=== PATIENT | male | born 1945 | race Caucasian/White ===

== ENCOUNTER 2017-11-06 05:23 | Inpatient (IN) ==
[2017-11-06] MEDS ORDERED: Insulin Regular (For Infusion) 100 UNIT in Sodium Chlor 0.9% Inj 99 ML IV.CONT PRN ×2 (05:43→11:15)
[2017-11-06] MEDS ORDERED: Chlorhexidine 4% Topical 120 APPLIC/120 ML Bottle TOPICAL SCH (05:45)
[2017-11-06] MEDS ORDERED: NITROGLYCERIN IRRIGATION SCH ×6 (05:45→06:30)
[2017-11-06] MEDS ORDERED: PAPAVERINE IRRIGATION SCH ×6 (05:45→06:30)
[2017-11-06] MEDS ORDERED: SODIUM CHLOR 0.9% IRRIGATION SCH ×6 (05:45→06:30)
[2017-11-06] MEDS ORDERED: [UNRECOGNIZED DRUG - OTHER] IRRIGATION SCH ×6 (05:45→06:30)
[2017-11-06] MEDS ORDERED: Sodium Chloride 0.9% Irr Bot 500 ML, ceFAZolin Inj 500 MG IRRIGATION SCH ×2 (05:45)
[2017-11-06] MEDS ORDERED: Sodium Chlor 0.9% Inj 500 ML IV.SIG SCH (06:00)
[2017-11-06] MEDS ORDERED: Chlorhexidine Gluconate 2% 1 Pack (2 Cloths) TOPICAL SCH (06:00)
[2017-11-06] MEDS ORDERED: Metoprolol Tartrate 25 MG Tablet PO SCH (06:00)
[2017-11-06] MEDS ORDERED: ceFAZolin Inj 2,000 MG in Sodium Chlor 0.9% Inj 80 ML IV.SIG SCH (06:00)
[2017-11-06] MEDS ORDERED: MethylPREDNISolone Sod Succinate Inj 125 MG/2 ML Vial ONE (06:21)
[2017-11-06] MEDS ORDERED: Heparin - SQ 10,000 UNITS/ML Vial SQ ONE ×2 (06:21→11:36)
[2017-11-06] MEDS ORDERED: ceFAZolin 2 GM Premix Inj 2 GM/50 ML PIGGYBACK IV.SIG ONE (06:22)
[2017-11-06] MEDS ORDERED: Sodium Chlor 0.9% Inj 57.5 ML, Papaverine Inj 60 MG, Nitroglycerin Inj 100 MCG, Verapam... IRRIGATION SCH ×3 (06:30)
[2017-11-06] MEDS ORDERED: Sodium Chlor 0.9% Inj 77.5 ML, Papaverine Inj 60 MG, Nitroglycerin Inj 100 MCG, dilTIAZ... IRRIGATION SCH ×3 (06:30)
[2017-11-06] MEDS: Metoprolol Tartrate 25 MG Tablet PO SCH (07:06)
[2017-11-06] MEDS ORDERED: Cardioplegic Irr Soln 2,000 ML IRRIGATION ONE (07:13)
[2017-11-06] MEDS ORDERED: Heparin 10,000 UNITS/10 ML Vial (for IV use) ONE (07:14)
[2017-11-06] MEDS ORDERED: Albumin Human 25% Inj 50 ML IV.SIG ONE (07:15)
[2017-11-06] MEDS ORDERED: Tranexamic Acid Inj 1,000 MG/10 ML Ampul ONE ×2 (09:46→09:47)
[2017-11-06] MEDS ORDERED: Magnesium Sulfate Inj 2 GM in Sodium Chlor 0.9% Inj 96 ML IV.SIG PRN ×4 (11:15)
[2017-11-06] MEDS ORDERED: Post-op Orders (for Pharmacy) OTHER STA (11:15)
[2017-11-06] MEDS ORDERED: Calcium Chloride Inj 1 GM/10 ML Syringe IV.PUSH PRN (11:15)
[2017-11-06] MEDS ORDERED: Clevidipine Inj 25 MG/50 ML VIAL IV.CONT PRN (11:15)
[2017-11-06] MEDS ORDERED: Potassium Chlor 20 mEq Premix 20 MEQ/100 ML PIGGYBACK IV.SIG PRN ×3 (11:15)
[2017-11-06] MEDS ORDERED: hydrALAZINE HCl Inj 20 MG/ML Vial IV.PUSH PRN (11:15)
[2017-11-06] MEDS ORDERED: Dexmedetomidine Inj 200 MCG in Sodium Chlor 0.9% Inj 48 ML IV.CONT PRN (11:15)
[2017-11-06] MEDS ORDERED: Dextrose 50% in Water 50 ML Vial IV.PUSH PRN (11:15)
[2017-11-06] MEDS ORDERED: Calcium Chloride Inj 1 GM in Sodium Chlor 0.9% Inj 100 ML IV.SIG PRN (11:15)
[2017-11-06] MEDS ORDERED: fentaNYL Citrate Inj 100 MCG/2 ML Ampul IV.PUSH PRN (11:15)
[2017-11-06] MEDS ORDERED: Metoprolol Inj 5 MG/5 ML Vial IV.PUSH PRN (11:15)
[2017-11-06] MEDS ORDERED: RESP: Racemic Epinephrine 2.25% 0.5 ML Neb NEB PRN (11:15)
--- NOTE | 2017-11-06 11:31 | P.OP ---
- Preoperative Diagnosis (1) CAD in [place] artery (2) CAD (coronary atherosclerotic disease) (3) Unstable angina pectoris - Postoperative Diagnosis (1) CAD (coronary atherosclerotic disease) (2) CAD in [place] artery (3) Unstable angina pectoris Date of procedure: 11/06/17 Procedure: CABG x 3 IBANEZ to LAd - fair SVG to OM - good SVG to distal PDA - good EVH Anesthesia: ADALID Surgeon: Norma Norman MD Metal Numerical Control Programmer: Roshan Iverson Pathology: none sent Operation and Findings: The risks, benefits, complications, treatment options, and expected outcomes were discussed with the patient. The possibilities of reaction to medication, pulmonary aspiration, perforation of viscus, bleeding, recurrent infection, the need for additional procedures, failure to diagnose a condition, and creating a complication requiring transfusion or operation were discussed with the patient. The patient concurred with the proposed plan, giving informed consent. The site of surgery properly noted/marked. The patient was taken to Operating Room, identified as Daniel Pereyra and the procedure verified as CABG, EVH, CRISTIAN. A Time Out was held and the above information confirmed. Standard monitoring lines and Clayton catheter were placed. General anesthesia was induced. The patient was prepped and draped in a sterile fashion. A median sternotomy was performed and electrocautery was used to obtain hemostasis. The left internal mammary artery was procured as a pedicle from the 7th rib to the 1st rib in the usual manner. Simultaneously left greater saphenous vein was procured from the left leg using a minimally invasive endoscopic technique. The vein was prepared for anastomosis and the leg wound was irrigated and closed in 2 layers. The pericardium was opened and a pericardial sling was created using interrupted 0 silk sutures. The patient was heparinized for cardiopulmonary bypass and the distal mammary pedicle was instrumented for anastomosis. The heart was instrumented for cardiopulmonary bypass in the usual manner. Antegrade blood cardioplegia was employed. The patient was placed on cardiopulmonary bypass. An aortic cross-clamp was applied and the heart was arrested using cold blood cardioplegia. Antegrade cardioplegia was administered after he each anastomosis. After adequate arrest, the distal right coronary circulation was investigated and the distal PDA was opened with a [place] blade and found to be a 1.5 millimeter good target. Saphenous vein was approximated to the PDA artery using a running 7 0 Prolene suture. The graft was measured for length and orientation and the proximal anastomosis was constructed to the ascending aorta using a running 5 0 Prolene suture after creating an aortotomy with a 5 millimeter punch. The 1st circumflex marginal artery was then opened with a [place] blade and found to be a 1.5 millimeter good target. Saphenous vein was approximated to the OM1 artery using a running 7 0 Prolene suture. The graft was measured for length and orientation and was suspended from the pericardium. The distal LAD was opened with a [place] blade and found to be a 1.5 millimeter fair target with diffuse disease. The left internal mammary artery was approximated to the LAD using a running 7 0 Prolene suture. The pedicle was attached to the epicardium using interrupted 5 0 silk suture. The patient was systemically rewarmed and received a hotshot dose of warm blood cardioplegia. The aorta was vented and the proximal anastomosis to the OM1 graft was accomplished using a running 5 0 Prolene suture after creating an aortotomy was a 5 millimeter punch. The cross-clamp was removed and all proximal and distal anastomoses were examined for hemostasis. The patient was weaned from cardiopulmonary bypass. Protamine was given. There was no adverse reaction. Decannulation was carried out without incident. Wound was checked for hemostasis which was obtained using electrocautery. A 36 [place] mediastinal and 32 [place] left pleural chest tubes were placed and secured to the skin with 0 silk suture. The sternum was closed with stainless steel wire. The fascia was closed with 1. PDS. The subcutaneous tissue was closed using a running 2-0 Vicryl suture. The skin was closed with 4-0 Monocryl. Sterile dressings were placed. At the end of the operation, all sponge, instruments, and needle counts were correct. The patient was transferred to the CICU in stable condition. Findings: diffuse CAD in LAD XC: 50 min CPB: 57 min Drains: mediastinal x 1 pleural x 1 Complications: none Disposition: to CVICU in stable condition
[2017-11-06] MEDS ORDERED: Nitroglycerin Drip Premix 50 MG/250 ML BOTTLE IV.SIG ONE (11:36)
[2017-11-06] MEDS ORDERED: Dextrose 5% in Water Inj 100 ML IV.SIG ONE (11:36)
[2017-11-06] MEDS ORDERED: Sodium Bicarbonate 8.4% Inj 50 MEQ/50 ML Syringe IV.CONT ONE (11:36)
[2017-11-06] MEDS ORDERED: Sodium Chlor 0.9% Inj 250 ML IV.SIG ONE (11:36)
[2017-11-06] MEDS ORDERED: Dexmedetomidine Inj 200 MCG/2 ML Vial IV.CONT ONE (11:36)
[2017-11-06] MEDS ORDERED: Calcium Chloride Inj 1 GM/10 ML Syringe IV.CONT ONE (11:36)
[2017-11-06] MEDS ORDERED: Sodium Chlor 0.9% Inj 100 ML IV.SIG ONE (11:36)
[2017-11-06] MEDS ORDERED: Sod Chloride 0.9% Inj 1,000 ML IV.SIG ONE (11:36)
[2017-11-06] MEDS ORDERED: Glycopyrrolate 0.2 MG/ML Vial IV.PUSH ONE (11:36)
[2017-11-06] MEDS ORDERED: Protamine Sulfate Inj 250 MG/25 ML Vial IV.CONT ONE (11:36)
[2017-11-06] MEDS ORDERED: fentaNYL Citrate Inj 250 MCG/5 ML Ampul ONE ×2 (12:04)
[2017-11-06] MEDS: Albumin Human 5% Inj 250 ML IV.SIG PRN ×2 (12:14→13:52)
--- NOTE | 2017-11-06 12:46 | XR ---
EXAM DATE: 11/06/2017 12:31 PM EDT AGE/SEX: 72 years / Male INDICATIONS: Post CABG. CLINICAL DATA: This is the patient's subsequent encounter. Patient reports that signs and symptoms h ave been present for 1 day and indicates a pain score of Nonresponsive. MEDICAL/SURGICAL HISTORY: Hypertension. . Cardiac cath. COMPARISON: [facility] [place], CHEST 1V SINGLE AP, 10/30/2017. . FINDINGS: A single AP view of the chest demonstrates interval median sternotomy. An endotracheal tube is seen w ith the tip 5 cm from the valdez. Left subclavian central line with the tip at the brachiocephalic ve in level. A nasogastric tube with the tip just past the GE junction. 2 subxiphoid left-sided chest tu bes. No pneumothoraces. Low lung volumes. Minimal basilar atelectasis. No effusions or pneumothorax. The heart is mildly enlarged. Median sternotomy wires. CONCLUSION: Interval median sternotomy with life support lines as detailed above. No pneumothorax or effusion. Electronically signed by: Wes Sheehan MD 11/06/2017 12:45 PM EDT
[2017-11-06] MEDS ORDERED: Nitroglycerin Drip Premix 50 MG/250 ML BOTTLE IV.CONT PRN (15:00)
[2017-11-06] MEDS: Ketorolac Inj 30 MG/ML (IVP) Vial IV.PUSH PRN (15:26)
[2017-11-06] MEDS: Amiodarone 200 MG Tablet PO SCH ×2 (18:24→22:54)
[2017-11-07 04:25] LABS: Hematocrit 34.3 % (39.0-51.0); Lymph # (Auto) 1.5 th/mm3 (1.0-4.8); Lymph % (Auto) 9.5 % (9.0-44.0); Mean Corpuscular HGB Conc 35.1 % (32.0-36.0); Mean Corpuscular Hemoglobin 33.2 pg (27.0-34.0); Mean Corpuscular Volume 94.8 fL (80.0-100.0); Mean Platelet Volume 7.9 fL (7.0-11.0); Mono # (Auto) 1.4 th/mm3 (0.0-0.9); Mono % (Auto) 9.1 % (0.0-8.0); Neut # (Auto) 12.5 th/mm3 (1.8-7.7); Neut % (Auto) 81.4 % (16.0-70.0); Platelet Count 204 th/mm3 (150-450); Red Blood Count 3.62 mil/mm3 (4.50-5.90); Red Cell Distribution Width 12.4 % (11.6-17.2); White Blood Count 15.4 th/mm3 (4.0-11.0)
[2017-11-07 04:51] LABS: Calcium 8.1 mg/dL (8.5-10.1); Magnesium 2.7 mg/dL (1.5-2.5); Potassium 4.1 meq/L (3.5-5.1)
[2017-11-07] MEDS: Amiodarone 200 MG Tablet PO SCH ×3 (05:34→21:03)
[2017-11-07] MEDS: Ketorolac Inj 30 MG/ML (IVP) Vial IV.PUSH PRN (06:12)
--- NOTE | 2017-11-07 06:21 | XR ---
EXAM DATE: 11/07/2017 5:54 AM EDT AGE/SEX: 72 years / Male INDICATIONS: Post CABG. CLINICAL DATA: This is the patient's subsequent encounter. Patient reports that signs and symptoms h ave been present for 2 weeks and indicates a pain score of Nonresponsive. MEDICAL/SURGICAL HISTORY: . Hypertension. . Abdominal aortic aneurysm repair. Cardiac cath. COMPARISON: [facility], CHEST 1V SINGLE AP, 11/06/2017. . FINDINGS: Single AP view of the chest. Median sternotomy wires. Mediastinal drain, left subclavian central veno us catheter, and left-sided chest tube remain in place. Endotracheal tube, nasogastric tube are no lo nger seen. Lungs are clear. Cardiomediastinal silhouette unchanged. No evidence of pleural effusion o r pneumothorax. CONCLUSION: Endotracheal tube and nasogastric tube no longer seen. Lungs are clear. Electronically signed by: Randy Bee MD 11/07/2017 6:20 AM EDT
--- NOTE | 2017-11-07 10:14 | P.PNCA ---
- Note Subjective/Hospital Course: Doing well Maintain CT Transfer CPCU [facility] Objective: Vital Signs - 24 hr 11/06/17 11:55 11/06/17 12:00 11/06/17 14:00 Temperature 97.3 F L 98.6 F Pulse Rate 76 Respiratory Rate 12 12 Blood Pressure 93/56 L Pulse Oximetry 96 98 11/06/17 14:05 11/06/17 14:17 11/06/17 14:21 Temperature Pulse Rate 67 Respiratory Rate 15 Blood Pressure Pulse Oximetry 98 98 11/06/17 14:45 11/06/17 15:00 11/06/17 17:00 Temperature 97.5 F L Pulse Rate 68 Respiratory Rate 16 Blood Pressure 99/60 L Pulse Oximetry 97 97 97 11/06/17 19:17 11/06/17 22:07 11/06/17 22:09 Temperature 97.6 F Pulse Rate 97 H 100 H Respiratory Rate 15 20 Blood Pressure 121/71 Pulse Oximetry 95 98 11/06/17 23:52 11/07/17 03:20 11/07/17 03:34 Temperature 98.7 F 98.7 F Pulse Rate 107 H 102 H 94 H Respiratory Rate 16 16 16 Blood Pressure 109/68 119/57 L Pulse Oximetry 95 95 11/07/17 07:00 11/07/17 08:03 Temperature 98.6 F Pulse Rate 94 H 95 H Respiratory Rate 16 16 Blood Pressure 106/60 Pulse Oximetry 98 95 Labs: Laboratory Results - last 12 hr 11/06/17 11/07/17 11/07/17 23:37 01:52 03:14 WBC RBC Hgb Hct MCV MCH MCHC RDW Plt Count MPV Neut % (Auto) Lymph % (Auto) Dickson % (Auto) Eos % (Auto) Baso % (Auto) Neut # (Auto) Lymph # (Auto) Dickson # (Auto) Eos # (Auto) Baso # (Auto) WBC Differential Differential Comment Sodium Potassium Chloride Carbon Dioxide Anion Gap BUN Creatinine Estimated GFR POC Glucose 141 H 110 102 Random Glucose Calcium Magnesium 11/07/17 11/07/17 04:06 04:06 WBC 15.4 H RBC 3.62 L Hgb 12.0 L Hct 34.3 L MCV 94.8 MCH 33.2 MCHC 35.1 RDW 12.4 Plt Count 204 D MPV 7.9 Neut % (Auto) 81.4 H Lymph % (Auto) 9.5 Dickson % (Auto) 9.1 H Eos % (Auto) 0.0 Baso % (Auto) 0.0 Neut # (Auto) 12.5 H Lymph # (Auto) 1.5 Dickson # (Auto) 1.4 H Eos # (Auto) 0.0 Baso # (Auto) 0.0 WBC Differential . Differential Comment Auto diff final Sodium 141 Potassium 4.1 Chloride 107 Carbon Dioxide 25.0 Anion Gap 9 BUN 15 Creatinine 1.00 Estimated GFR 73 L POC Glucose Random Glucose 107 H Calcium 8.1 L Magnesium 2.7 H Result Diagrams: 11/07/17 04:06 11/07/17 04:06
[2017-11-07] MEDS ORDERED: Bisacodyl 10 MG Supp RECTAL PRN (10:16)
[2017-11-07] MEDS ORDERED: Dextrose 50% in Water 50 ML Vial IV.PUSH PRN ×2 (10:16→10:20)
[2017-11-07] MEDS ORDERED: Sod Phosphate/Sod Biphosphate (Adult) Enema 133 ML Bottle RECTAL PRN (10:16)
[2017-11-07] MEDS: amLODIPine 5 MG Tablet PO SCH (10:47)
[2017-11-07] MEDS: Metoprolol Tartrate 25 MG Tablet PO SCH ×3 (10:47→20:55)
[2017-11-07] MEDS: Insulin NovoLOG Aspart Correctional Sugar Inj SQ SCH ×3 (13:01→20:57)
--- NOTE | 2017-11-07 15:25 | ECG ---
Date Performed: 11/07/2017 Time Performed: 05:47:04 PTAGE: 72 years EKG: Sinus rhythm Left axis deviation Since previous tracing, no significant change noted Abnormal ECG PREVIOUS TRACING : 10/30/2017 11.25 DOCTOR: Morgan Owen Interpretating Date/Time 11/07/2017 15:24:02
[2017-11-07] MEDS: Docusate Sodium 100 MG Capsule PO SCH (20:53)
[2017-11-08] MEDS: Amiodarone 200 MG Tablet PO SCH ×3 (05:42→21:02)
[2017-11-08] MEDS: Insulin NovoLOG Aspart Correctional Sugar Inj SQ SCH ×4 (09:02→20:53)
[2017-11-08] MEDS: Docusate Sodium 100 MG Capsule PO SCH ×2 (09:07→21:02)
[2017-11-08] MEDS: Multivitamin/Minerals Therapeutic Tablet PO SCH (09:08)
[2017-11-08] MEDS: amLODIPine 5 MG Tablet PO SCH (09:08)
[2017-11-08] MEDS: Metoprolol Tartrate 25 MG Tablet PO SCH ×2 (09:09→21:02)
[2017-11-08] MEDS: Polyethylene Glycol 3350 17 GM Packet PO SCH (09:10)
--- NOTE | 2017-11-08 09:45 | P.PNCA ---
- Note Subjective/Hospital Course: 11/[address] Transfer CPCU [facility] 11/08 Doing well Ambulating well CT dumped with ambulation Will re-evaluate for removal in am Discharge planning Objective: Vital Signs - 24 hr 11/07/17 11:00 11/07/17 11:45 11/07/17 12:00 Temperature 98.6 F 97.4 F L Pulse Rate 110 H 101 H 104 H Respiratory Rate 16 17 Blood Pressure 122/62 127/67 Pulse Oximetry 97 96 11/07/17 13:00 11/07/17 14:00 11/07/17 15:00 Temperature 98.4 F Pulse Rate 100 H 102 H 100 H Respiratory Rate 17 Blood Pressure 120/57 L Pulse Oximetry 95 11/07/17 16:00 11/07/17 17:00 11/07/17 18:00 Temperature Pulse Rate 98 H 104 H 94 H Respiratory Rate Blood Pressure Pulse Oximetry 11/07/17 19:00 11/07/17 20:20 11/07/17 23:00 Temperature 99.7 F H 99.2 F Pulse Rate 98 H 97 H 93 H Respiratory Rate 18 16 16 Blood Pressure 113/58 L 121/58 L Pulse Oximetry 95 96 94 L 11/08/17 01:00 11/08/17 03:00 11/08/17 05:00 Temperature 99 F Pulse Rate 84 92 H 90 Respiratory Rate 16 Blood Pressure 112/61 Pulse Oximetry 92 L 11/08/17 06:01 11/08/17 07:00 11/08/17 07:57 Temperature 97.9 F Pulse Rate 92 H 84 98 H Respiratory Rate 16 Blood Pressure 113/65 Pulse Oximetry 94 L 11/08/17 08:02 Temperature Pulse Rate 80 Respiratory Rate 18 Blood Pressure Pulse Oximetry 94 L Labs: Laboratory Results - last 12 hr 11/08/17 07:47 POC Glucose 126 H Result Diagrams: 11/07/17 04:06 11/07/17 04:06
[2017-11-09] MEDS: Amiodarone 200 MG Tablet PO SCH ×2 (06:11→21:58)
[2017-11-09] MEDS: Insulin NovoLOG Aspart Correctional Sugar Inj SQ SCH ×4 (08:23→21:59)
[2017-11-09] MEDS: Docusate Sodium 100 MG Capsule PO SCH ×2 (08:23→22:00)
[2017-11-09] MEDS: amLODIPine 5 MG Tablet PO SCH (08:24)
[2017-11-09] MEDS: Multivitamin/Minerals Therapeutic Tablet PO SCH (08:24)
[2017-11-09] MEDS: Metoprolol Tartrate 25 MG Tablet PO SCH ×2 (08:24→21:59)
[2017-11-09] MEDS: Polyethylene Glycol 3350 17 GM Packet PO SCH (08:25)
[2017-11-09] MEDS ORDERED: Metoprolol Tartrate 25 MG Tablet PO SCH (11:15)
--- NOTE | 2017-11-09 11:19 | P.PNCA ---
- Note Subjective/Hospital Course: 72/ male hx of new onset chest pain with exertion , had Echo which showed preserved LVF 60% LVH mild TR , he underwent cardiac cath 95% prox LAD, OM 95% PDA 95% PMH: angina, HTN cluster [facility] pt was admitted electively for surgery surgery 11/06 CABG x 3 IBANEZ to LAd - fair SVG to OM - good SVG to distal PDA - good L EVH 11/[address] Transfer CPCU [facility] 11/08 Doing well Ambulating well CT dumped with ambulation Will re-evaluate for removal in am Discharge planning 11/09 chest tube dc without difficulty feels well, on room air, no BM since surgery eval for discharge in am Objective: Vital Signs - 24 hr 11/08/17 11:00 11/08/17 11:30 11/08/17 12:00 Temperature 99 F Pulse Rate 88 85 100 H Respiratory Rate 16 Blood Pressure 121/61 Pulse Oximetry 92 L 11/08/17 13:14 11/08/17 14:00 11/08/17 15:00 Temperature Pulse Rate 104 H 92 H 106 H Respiratory Rate Blood Pressure Pulse Oximetry 11/08/17 15:43 11/08/17 16:00 11/08/17 16:03 Temperature 98.5 F Pulse Rate 102 H 100 H 80 Respiratory Rate 16 18 Blood Pressure 113/56 L Pulse Oximetry 95 11/08/17 17:00 11/08/17 18:00 11/08/17 19:00 Temperature 99.8 F H Pulse Rate 102 H 110 H 102 H Respiratory Rate 18 Blood Pressure 122/71 Pulse Oximetry 92 L 11/08/17 19:54 11/08/17 20:00 11/08/17 22:00 Temperature Pulse Rate 101 H 74 Respiratory Rate 16 Blood Pressure Pulse Oximetry 92 L 92 L 11/08/17 23:00 11/09/17 03:00 11/09/17 03:26 Temperature 98.7 F 99.4 F Pulse Rate 95 H 87 89 Respiratory Rate 16 18 16 Blood Pressure 123/63 111/63 Pulse Oximetry 92 L 92 L 11/09/17 06:10 11/09/17 07:00 11/09/17 07:42 Temperature 98.9 F Pulse Rate 84 90 Respiratory Rate 20 Blood Pressure 126/68 Pulse Oximetry 96 94 L 11/09/17 08:00 11/09/17 09:00 11/09/17 10:00 Temperature Pulse Rate 88 94 H 89 Respiratory Rate Blood Pressure Pulse Oximetry 11/09/17 10:35 Temperature 98.2 F Pulse Rate 87 Respiratory Rate 20 Blood Pressure 122/64 Pulse Oximetry 94 L GENERAL: A&O x 3 SKIN: Warm and dry. prevena dressing to chest , incisions intact to left leg , some ecchymosis HEAD: Normocephalic. EYES: No scleral icterus. No injection or drainage. NECK: Supple, trachea midline. No JVD or lymphadenopathy. CARDIOVASCULAR: Regular rate and rhythm without murmurs, gallops, or rubs. RESPIRATORY: Breath sounds equal bilaterally. No accessory muscle use. GASTROINTESTINAL: Abdomen soft, non-tender, nondistended. MUSCULOSKELETAL: No cyanosis, or edema. BACK: Nontender without obvious deformity. No CVA tenderness. Labs: Laboratory Results - last 12 hr 11/06/17 11/09/17 11/09/17 06:13 07:58 10:42 POC Glucose 125 H 139 H MTS Gel Crossmatch See Detail Result Diagrams: 11/07/17 04:06 11/07/17 04:06 Telemetry: NSR
--- NOTE | 2017-11-10 03:22 | XR ---
EXAM DATE: 11/10/2017 3:05 AM EDT AGE/SEX: 72 years / Male INDICATIONS: Chest tube removal. R/O PTX CLINICAL DATA: This is the patient's subsequent encounter. Patient reports that signs and symptoms h ave been present for 2 weeks and indicates a pain score of 0/10. MEDICAL/SURGICAL HISTORY: Hypertension. . Abdominal aortic aneurysm repair. Cardiac cath COMPARISON: [facility] [place], CHEST 1V SINGLE AP, 11/07/2017. . FINDINGS: A single AP view of the chest demonstrates the lungs to be symmetrically aerated without infiltrate. Interval removal of the left-sided thoracostomy tube and mediastinal drain as well as a left subclavi an central venous catheter. There may be a very tiny, 5 mm left apical pneumothorax. Intact median st ernotomy wires. Heart size is borderline prominent but well compensated. Osseous structures are intac t. CONCLUSION: 1. Interval removal of the left thoracostomy tube, mediastinal drain and left subclavian central [place] ous catheters. 2. There may be a very tiny, 5 mm left apical pneumothorax. Lungs are otherwise clear. Electronically signed by: Alfredo Spears MD 11/10/2017 3:20 AM EDT
[2017-11-10 04:14] LABS: Carbon Dioxide 30.4 meq/L (21.0-32.0); Magnesium 2.6 mg/dL (1.5-2.5); Potassium 3.9 meq/L (3.5-5.1)
[2017-11-10] MEDS: Metoprolol Tartrate 25 MG Tablet PO SCH (08:13)
[2017-11-10] MEDS: Multivitamin/Minerals Therapeutic Tablet PO SCH (08:13)
[2017-11-10] MEDS: amLODIPine 5 MG Tablet PO SCH (08:13)
[2017-11-10] MEDS: Insulin NovoLOG Aspart Correctional Sugar Inj SQ SCH (08:13)
[2017-11-10] MEDS: Amiodarone 200 MG Tablet PO SCH (08:13)
[2017-11-10] MEDS: Polyethylene Glycol 3350 17 GM Packet PO SCH (08:14)
[2017-11-10] MEDS: Docusate Sodium 100 MG Capsule PO SCH (08:14)
--- NOTE | 2017-11-10 09:57 | P.DS ---
Date of admission: 11/06/17 05:23 Primary care physician: Davon Gregg JR DO Attending physician on discharge: Norma Norman Anticipated date of discharge: 11/10/17 Brief History from admission: 72/ male hx of new onset chest pain with exertion , had Echo which showed preserved LVF 60% LVH mild TR , he underwent cardiac cath 95% prox LAD, OM 95% PDA 95% PMH: angina, HTN cluster [facility] pt was admitted electively for surgery DS: Diagnosis - Discharge Diagnosis (1) CAD (coronary atherosclerotic disease) Status: Acute (2) CAD in [place] artery Status: Acute (3) S/P CABG x 3 Status: Acute DS: Medications - Discharge Medications Prescriptions: amiodarone 200 mg PO Q12HR #28 tab atorvastatin 40 mg PO HS #30 tab docusate sodium [DOK] 100 mg PO BID #60 cap metoprolol tartrate 25 mg PO BID #60 tab oxycodone-acetaminophen 1 tab PO Q4H PRN #40 tab PRN Reason: Pain Scale 1 To 5 DS: Summary Hospital Course: surgery 11/06 CABG x 3 IBANEZ to LAd - fair SVG to OM - good SVG to distal PDA - good L EVH 11/[address] Transfer CPCU [facility] 11/08 Doing well Ambulating well CT dumped with ambulation Will re-evaluate for removal in am Discharge planning 11/09 chest tube dc without difficulty feels well, on room air, no BM since surgery eval for discharge in am 11/10 pt doing well , remains in NSR + BM , pain controlled stable for dc home today - Time Spent with Patient Total time spent providing and/or coordinating discharge services: - Quality: VTE Deep Vein Thrombosis/Pulmonary Embolism Present on Admission: No Exam Vital signs: Vital Signs 11/09/17 10:00 11/09/17 10:35 11/09/17 11:00 Temperature 98.2 F Pulse Rate 89 87 91 H Respiratory Rate 20 Blood Pressure 122/64 Pulse Oximetry 94 L 11/09/17 12:00 11/09/17 13:00 11/09/17 14:00 Temperature Pulse Rate 89 107 H 75 Respiratory Rate Blood Pressure Pulse Oximetry 11/09/17 14:47 11/09/17 14:55 11/09/17 15:00 Temperature 97.9 F Pulse Rate 94 H 94 H Respiratory Rate 18 Blood Pressure Pulse Oximetry 94 L 94 L 11/09/17 16:00 11/09/17 17:00 11/09/17 18:00 Temperature Pulse Rate 91 H 86 96 H Respiratory Rate Blood Pressure Pulse Oximetry 11/09/17 19:00 11/09/17 20:00 11/09/17 23:00 Temperature 100.1 F H 99.2 F Pulse Rate 103 H 101 H Respiratory Rate 18 16 Blood Pressure 133/68 140/64 Pulse Oximetry 93 L 93 L 93 L 11/10/17 00:00 11/10/17 01:00 11/10/17 02:08 Temperature Pulse Rate 92 H 87 88 Respiratory Rate Blood Pressure Pulse Oximetry 11/10/17 03:00 11/10/17 04:00 11/10/17 05:00 Temperature 99.6 F Pulse Rate 88 71 90 Respiratory Rate 16 Blood Pressure 131/66 Pulse Oximetry 93 L 11/10/17 06:00 11/10/17 07:00 11/10/17 08:00 Temperature 97.5 F L Pulse Rate 88 96 H 100 H Respiratory Rate 16 Blood Pressure 120/58 L Pulse Oximetry 95 95 11/10/17 09:00 Temperature Pulse Rate 98 H Respiratory Rate Blood Pressure Pulse Oximetry Intake & Output 11/09/17 11/10/17 11/10/17 18:59 06:59 18:59 Intake Total 960 / 960 320 / 320 Output Total 1000 / 1000 520 / 520 Balance -40 / -40 -200 / -200 Weight 108.8 kg Intake: Oral 960 / 960 320 / 320 Output: Urine 1000 / 1000 520 / 520 Other: # Voids 2 1 Date of Last Bowel Movement 11/10/17 11/09/17 # Bowel Movements 0 2 - Constitutional no acute distress - Routine HEENT Exam Head: Present: normocephalic, atraumatic Eye: Present: EOMI, PERRL - Routine Neck Exam Present: supple, full ROM - Routine Chest/Breast/Axilla Exam Chest wall: Present: tenderness - Routine Respiratory Exam Present: CTA bilaterally - Routine Cardiovascular Exam Present: RRR, S1, S2 - Routine Abdominal Exam Present: soft, normoactive bowel sounds - Routine Extremities Exam Present: pulses intact, normal capillary refill - Routine Skin Exam Present: intact, wounds Comments: prevena dressing intact to chest, incisions intact to left leg ecchymosis to left leg - Routine Neurological Exam Present: alert, oriented X3, CN II-XII intact Results Procedures completed during hospitalization: Date of procedure: 11/06/17 Procedure: CABG x 3 IBANEZ to LAd - fair SVG to OM - good SVG to distal PDA - good L EVH Labs on day of discharge: Labs from last 24 hours 11/10/17 11/09/17 11/09/17 03:23 20:05 16:52 Sodium 140 Potassium 3.9 Chloride 104 Carbon Dioxide 30.4 Anion Gap 6 BUN 15 Creatinine 1.09 Estimated GFR 66 L POC Glucose 124 H 139 H Random Glucose 113 H Calcium 8.0 L Magnesium 2.6 H 11/09/17 10:42 Sodium Potassium Chloride Carbon Dioxide Anion Gap BUN Creatinine Estimated GFR POC Glucose 139 H Random Glucose Calcium Magnesium - Impressions ITS Impressions Chest X-Ray 11/10/17 06:00 CONCLUSION: 1. Interval removal of the left thoracostomy tube, mediastinal drain and left subclavian central venous catheters. 2. There may be a very tiny, 5 mm left apical pneumothorax. Lungs are otherwise clear. Discharge Plan - Discharge Disposition Patient Disposition: /Home Health Service - Discharge Condition Condition: Good - Discharge Order Discharge Orders: Discharge Order (Routine); Ordered 11/10/17 Ordered By: Rosangela Amato - Discharge Details Anticipated Discharge Date: 11/10/17 - Physicians Team Primary Care Provider: Davon Gregg JR Attending Provider: Norma Norman Other Providers: Del Mathis ; [facility] - Rxs /Orders / Referrals /Forms Prescriptions: New amiodarone 200 mg Tablet 200 mg PO Q12HR Qty: 28 RF: 0 atorvastatin 40 mg Tablet 40 mg PO HS Qty: 30 RF: 2 docusate sodium [DOK] 100 mg Capsule 100 mg PO BID Qty: 60 RF: 0 metoprolol tartrate 25 mg Tablet 25 mg PO BID Qty: 60 RF: 2 aktviihx-yuyf-QH-calcium-mins [Thera M Plus (ferrous fumarat)] 9 mg iron-400 mcg Tablet 1 tab PO DAILY Qty: 30 RF: 2 oxycodone-acetaminophen 5-325 mg Tablet 1 tab PO Q4H PRN (Reason: Pain Scale 1 To 5) Qty: 40 RF: 0 Continue amlodipine 5 mg Tablet 5 mg PO DAILY aspirin [Aspir-81] 81 mg Tablet,Delayed Release (Dr/Ec) 81 mg PO DAILY flaxseed oil 1,000 mg Capsule 1,000 mg PO DAILY hydrochlorothiazide 12.5 mg Capsule 12.5 mg PO DAILY omega 1-bvc-aem-fish oil [Fish Oil] 1,000 mg (120 mg-180 mg) Capsule 10,000 mg PO DAILY Discontinued metoprolol succinate 50 mg Tablet Extended Release 24 Hr 50 mg PO DAILY nitroglycerin 0.4 mg Tablet, Sublingual 0.4 mg SUBLINGUAL Q5-15M PRN (Reason: Chest Pain) Referrals: Davon Gregg JR, [Primary Care Provider] - See Instructions
--- NOTE | 2017-11-10 12:12 | P.DCO ---
- Diagnosis (2) CAD (coronary atherosclerotic disease) - Home Health Nursing Instructions: PREVENA Single Use Negative Wound Therapy System Caregiver Instruction Sheet 1. A Prevena dressing system was applied to the chest incision during surgery , to promote wound healing. It works via a suction device (negative pressure wound therapy) to remove low to moderate levels of exudate (drainage) and infectious materials. We recommend that the device stay in place for up to seven days, from day of surgery. 2. Day of Surgery / Day of Removal ____/ 3. The dressing should only be removed by a health special needs child caregiver. Please arrange removal of device to coincide with Home Health visit and or with Nursing staff at Rehab 4. If skin reddening or irritation of skin occurs, or excessive drainage, please notify the Cardiovascular Surgeons office at [phone]. 5. Light showering is permissible; however the pump should be disconnected and placed in safe location, where it will not get wet. The dressing should not be exposed to direct spray or submerged in water. No bath tub / shower only. Ensure the end of the tubing attached to the dressing is facing down so that water does not enter the top of the tube. 6. To remove Prevena dressing: press purple button to turn off device / remove the suction. Then disconnect the tubing from the pump. The fixation strips should be stretched away from the skin and the dressing lifted at one corner and peeled back until it has been fully removed. 7. After removal, it is ok to shower daily using liquid dial soap and clean wash cloth, rinse and pat dry, and leave incision open to air dry. For any concerns regarding Prevena dressing, and or wounds, please contact Elvira Greenwood, patient navigator at [phone] or notify the Cardiovascular Surgeons office at [phone]. Incentive spirometry Q1 hr x 10, while awake, also use acapella device hourly whole awake Sternal Breast Bone Precautions: NO pushing or pulling, ( pt must use sternal pillow to support chest with all activities and with coughing ( takes up to 3 months breast bone to heal ) All females to wear sternal bra , launder as needed Daily incision care: ok to shower daily, no tub bath. Wash all incisions with liquid dial soap, clean wash cloth to each site, rinse and pat dry. Observe for any signs of infection, such as drainage which is dark yellow, mijares, green or foul smelling. Immediately report to the surgeon any drainage from the chest incision, or legs, and for any abnormal drainage from the chest tube sites. Notify surgeon if any temp >101.5 degrees F. When specialty dressing removed/ or if you do not have one, continue to shower daily as above, then rinse and pat incision dry and paint with betadine daily x 5 days. Allow steri strips to fall off if you have any. Avoid lotions, creams, salves, oils, etc. for the first month Please see attached forms for additional instructions regarding post Open Heart specialty wound vacuum dressings. 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 Washington & Dr. Norman), After Hours / Nights (5pm -8am) Weekends and Holidays Please call [facility] ([facility]) Charge Nurse - Home Health Aide Order: To assist in: stock holder and meal prep - Certification I have seen patient Daniel Pereyra on 11/10/17. My clinical findings support the need for the requested home health care services because: Deconditioned with increased weakness I certify that my clinical findings support that this patient is homebound because: Post-op weakness (2) CAD (coronary atherosclerotic disease) Qualifiers: Coronary Disease-Associated Artery/Lesion type: [place] artery
== END 2017-11-10 11:37 | disposition home health service (06) ==
LOC: HSDI 05:23 → HCVI 11:59 → HCPC 11-07 11:41
PROVIDERS: ADMIT Thoracic Surgery (Cardiothoracic Vascular Surgery); ATTEND Thoracic Surgery (Cardiothoracic Vascular Surgery)